=== PATIENT | female | born 1950 | race Caucasian/White ===

== ENCOUNTER 2017-08-30 09:55 | Emergency (ER) | payer BC, MEDICARE ==
[2017-08-30] MEDS ORDERED: methylPREDNISolone Sod Succ/PF 125 MG/2 ML VIAL ONE (10:36)
[2017-08-30] MEDS ORDERED: Water For Inject, Bacteriostat 30 ML ONE (10:36)
[2017-08-30] MEDS ORDERED: Morphine 4 MG/ML VIAL ONE (10:36)
[2017-08-30 11:45] LABS: Bilirubin Negative (Negative); Blood, Urine Small (Negative); Clarity CLEAR (Clear); Glucose, Urine (Dipstick) Negative (Negative); Leukocyte Trace (Negative); Nitrite Negative (Negative); Protein, Urine (Dipstick) 30 mg/dL (Neg-Trace); Specific Gravity, Urine 1.015 (1.002-1.036); Urobilinogen 0.2 mg/dL (0.2-1.0); pH, Urine 5.5 (5.0-9.0)
[2017-08-30 11:46] LABS: Bacteria/HPF None Seen HPF (None Seen); Hyaline Casts/LPF 0-3 HYALINE CAST LPF (0-3 Hyaline); Pathc Cast-AUWi Flag 0.43 (0-2.49); RBC/HPF 0-3 HPF (0-3); Squamous Epithelial 0-3 HPF (0-3); WBC/HPF 0-3 HPF (0-3)
== END 2017-08-30 12:29 | disposition home or self-care (01) ==
LOC: ERS 09:55
DX: M54.41 Lumbago with sciatica, right side; Z79.899 Other long term (current) drug therapy; G89.29 Other chronic pain; M54.42 Lumbago with sciatica, left side
CPT/HCPCS: 81003; 81015; 87086; 96372; J2270; J2930

== ENCOUNTER 2017-09-30 16:09 | Outpatient (CLI) | payer BC ==
--- NOTE | 2017-09-30 17:34 | RAD ---
TWO VIEWS OF THE LUMBAR SPINE: 09/30/17 HISTORY: Lumbar disc degeneration. Pain radiating down both legs to feet. Previous back surgery. CORRELATION: Post myelogram CT 07/11/16. FINDINGS: Two views of the lumbar spine demonstrate leftward curvature of the lumbar spine. There are five lumb ar type vertebral bodies. Laminectomy defect at L3 and L4. Left sided transpedicular screw at L2, L3, L4 and L5. Right sided transpedicular screw at L4 and L5. No perihardware lucency. There appears to be anterolisthesis of L3 upon L4. IMPRESSION: Uncomplicated lumbar fusion changes. POS: [facility]
== END 2017-09-30 16:10 | disposition home or self-care (01) ==
LOC: TBSIIMAG 16:09
PROVIDERS: ATTEND Neurological Surgery
DX: M51.36 Other intervertebral disc degeneration, lumbar region (principal); Z98.1 Arthrodesis status
CPT/HCPCS: 72100

== ENCOUNTER 2017-10-28 09:03 | Day surgery (SDC) | payer BC, MEDICARE ==
[2017-10-27 11:00] VITALS: BMI 32.6
[2017-10-28 10:13] VITALS: BP 106/79; TEMP 97.8
--- NOTE | 2017-10-28 12:29 | RAD ---
CERVICAL AND THORACIC AND LUMBAR SPINE MYELOGRAM: INDICATION: Cervical, thoracic, and lumbar radiculopathy. PROCEDURE: After informed consent had been obtained, the patient was escorted to the interventional suite and pl aced on the procedural table. Rehabilitation Liaison imaging was performed. The patient was placed into a prone posi tion. Skin on the low back was then prepped and draped in the standard sterile fashion and topical a nd regional soft tissue anesthesia was achieved with 1% lidocaine and sodium bicarbonate. L3 right in terlaminar approach was selected, and a 22 gauge needle was uneventfully advanced into the thecal sac with clear color CSF. Subsequently, 9 mL Isovue-M300 was instilled into the thecal sac under real t edelmira fluoroscopy. Appropriate opacification of thecal sac demonstrated [facility]. The needle was then removed from the patient. The patient tolerated the procedure well and was then transferred to CT to undergo subsequent myelogram. Reference separate report for full detai ls. RADIATION EXPOSURE DATA: 0.3 minutes intermittent fluoroscopy. 216 mGy*M2. IMPRESSION: Technically successful cervical, thoracic, and lumbar myelogram as detailed above. POS: [facility]
[2017-10-28] MEDS ORDERED: Iopamidol-M 300 61% 15 ML VIAL ONE (13:45)
--- NOTE | 2017-10-28 15:42 | CT ---
CT CERVICAL MYELOGRAM: CT CERVICAL SPINE WITH CONTRAST: INDICATIONS: Back pain. Neck pain. Radiculopathy. COMPARISON: Reference made to prior myelogram from 07/11/2016. FINDINGS: Interval placement of anterior metallic plate and two vertebral body screws at the C5, C6, and C7 lev els. Intervening disk space prostheses are seen at C5-C6 and C6-C7. There is straightening of the n ormal cervical curvature. The anterior metallic plate is located slightly anterior to the anterior m argin of the C5 vertebral body, approximately 2-3 mm. There is no obvious perihardware lucency. No expansile intramedullary process is evident. There is degenerative hypertrophy at the C1-C2 level with mild effacement of the ventral thecal sac. C2-C3: No significant compromise of the central canal or neural foramina. There is a mild broad-bas ed disk osteophyte complex. C3-C4: Mild narrowing of the central canal due to a broad-based disk osteophyte. There is moderate degenerative facet hypertrophy bilaterally, along with uncinate process hypertrophy, producing modera te osseous compromise of the bilateral neural foramina. C4-C5: Asymmetric, prominent right degenerative facet hypertrophy is present with moderate to severe osseous compromise in the right neural foramen. Disk osteophyte results in mild ventral cord efface ment and mild central canal stenosis. Left uncinate process hypertrophy results in mild to moderate osseous compromise of the left neural foramen. C5-C6: There is a broad-based right asymmetric osteophyte with mild right hemicord ventral flattenin g. There is moderate right and mild left neural foraminal narrowing. C6-C7: Right asymmetric osteophyte is present with a focal right paracentral component that does pro duce ventral cord flattening. Prominent uncinate process bilaterally results in moderate to severe o sseous compromise of the neural foramina. C7-T1: Mild ventral CSF effacement due to disk osteophyte. No high grade foraminal compromise. IMPRESSION: Multilevel degenerative and postoperative changes of the cervical spine, as outlined above. There is associated central canal and neural foraminal stenosis, as well as areas of cord deformity. POS: [facility]
--- NOTE | 2017-10-28 16:06 | CT ---
CT LUMBAR SPINE MYELOGRAM: CT LUMBAR SPINE WITH CONTRAST 10/28/17 COMPARISON: 07/11/16 CLINICAL HISTORY: Low back pain, bilateral radiculopathy. FINDINGS: Multilevel posterior metallic fusion is present spanning L2 through L5 segments, with left pedicle sc rew placement at L2 and L3 and bilateral pedicle screws at L4 and L5. No interval, significant periha rdware lucency is identified. There is multilevel bilateral degenerative facet hypertrophy. The conus medullaris terminates at the L1-2 level. There is prominent extrinsic mass effect upon the tip of th e conus medullaris at the L1-2 level due to bilateral facet hypertrophy as well as broad based disc o steophyte. This does result in associated distal cord deformity. Redemonstration of chronic Modic type III end plate degenerative changes of L3 and 4. Mild retrolisth esis of L2 on 3 and mild degree of spondylolisthesis at L3-4, grossly stable. L5-S1: Moderate central canal stenosis is present with broad based disc osteophyte and bilateral face t hypertrophy. Evidence of prior posterior decompression. Added density about the thecal sac likely r elates to epidural fibrosis, limited in visualization on the basis of this exam. L4-5: No significant compromise of central canal and neural foramina. L3-4: Minimal narrowing of the central canal. Prior posterior decompression is again seen. There is m ild to moderate bilateral neural foraminal stenosis. Posterior decompression present. L2-3: Evidence of prior posterior decompression. There is mild narrowing of the central canal due to broad based disc osteophyte. Mild bilateral neural foraminal narrowing. L1-2: Moderate central canal stenosis is again demonstrated. Mild to moderate left and mild right monique ral foraminal narrowing present. IMPRESSION: Redemonstration of multilevel degenerative changes of the postoperative lumbar spine. There is a prom inent degree of compression involving the tip of the conus medullaris due to broad based disc osteoph yte as well as bilateral facet hypertrophy and prominent ligamentum flava. POS: [facility]
--- NOTE | 2017-10-29 08:12 | CT ---
THORACIC SPINE CT MYELOGRAM: THORACIC SPINE CT WITH CONTRAST: CLINICAL HISTORY: Back pain. Radiculopathy. COMPARISON: Thoracic spine myelogram from 07/11/2016. FINDINGS: There is prominent multilevel endplate degenerative change with disk space narrowing and marginal ost eophytosis. Partially imaged hardware at the lower cervical spine is present. There is no significant compromise of the C7-T1 level central canal. T1-T2: There is a disk osteophyte complex notably within the right subarticular zone. Associated ri ght ventral hemicord flattening is present, and there is moderate narrowing of the right subarticular zone. There is mild osseous compromise of the right neural foramen. T2-T3: There is a central disk protrusion approaching but not significantly deforming the ventral as pect of the thoracic spinal cord. No significant foraminal stenosis. T3-T4: Central disk protrusion is superimposed upon disk osteophyte complex. There is mild ventral cord flattening. No high grade foraminal stenosis. T4-T5: Disk osteophyte complex is present. No high grade central canal or foraminal stenosis. T5-T6: Left asymmetric disk osteophyte with a focal left subarticular component results in ventral l eft hemicord flattening and mild narrowing in the left subarticular zone. Mild left foraminal narrow ing. No high grade right foraminal stenosis. T6-T7: Disk osteophyte complex results in mild ventral cord flattening and mild central canal stenos is. No high grade compromise of the neural foramina. T7-T8: Disk osteophyte complex is present with mild ventral cord effacement. No high grade foramina l compromise. T8-T9: There is mild to moderate central canal narrowing due to a broad-based disk osteophyte. Ther e is mild bilateral neural foraminal narrowing. T9-T10: There is moderate central canal stenosis due to disk osteophyte complex. Mild to moderate r ight and mild left neural foraminal narrowing present. T10-T11: Moderate central canal stenosis with associated cord flattening results from broad-based di sk osteophyte. There is moderate right and mild to moderate left neural foraminal narrowing with sev ere bilateral degenerative facet and costovertebral hypertrophy. T11-T12: Moderate central canal stenosis with associated cord flattening due to broad-based disk ost eophyte. There is mild bilateral neural foraminal narrowing. T12-L1: No high grade compromise of the central canal or neural foramina. There is a mild right convexity curvature, centered at the mid lumbar spine. Incidental note of scat tered subpleural interstitial and ground glass opacities. This may be on the basis of a component of pulmonary fibrosis. There is also a round parenchymal nodule at the right perihilar region, approxi mately 7-8 mm in size. In addition, there is a partially imaged subpleural nodular opacity of the po sterior aspect of the right upper lobe. IMPRESSION: 1. Multilevel degenerative change of the thoracic spine with associated cord effacement and central canal and neural foraminal stenosis, as above. 2. Incidental note of nodular opacities of the visualized pulmonary parenchyma. Dedicated CT thorax as followup is warranted. CODE T POS: [facility]
== END 2017-10-28 12:35 | disposition home or self-care (01) ==
LOC: RAD 09:03
PROVIDERS: ATTEND Neurological Surgery
PROC: B02BY0Z Computerized Tomography (CT Scan) of Spinal Cord using Other Contrast, Unenhanced and Enhanced (ICD-10-PCS; principal; 2017-10-28)
DX: M48.062 Spinal stenosis, lumbar region with neurogenic claudication (principal); M48.02 Spinal stenosis, cervical region; M51.14 Intervertebral disc disorders with radiculopathy, thoracic region; M47.26 Other spondylosis with radiculopathy, lumbar region; M47.22 Other spondylosis with radiculopathy, cervical region
CPT/HCPCS: 62305; 72126; 72129; 72132

== ENCOUNTER 2021-11-06 15:36 | Outpatient (CLI) | payer MEDICARE | END 2021-11-06 15:37 | disposition home or self-care (01) | LOC: BICCT 15:36 | PROVIDERS: ATTEND Anesthesiology Pain Medicine | DX: M96.1 Postlaminectomy syndrome, not elsewhere classified (principal); M48.00 Spinal stenosis, site unspecified; T85.111A Breakdown (mechanical) of implanted electronic neurostimulator of peripheral nerve electrode (lead), initial encounter; M47.26 Other spondylosis with radiculopathy, lumbar region; M41.9 Scoliosis, unspecified; Z98.890 Other specified postprocedural states | CPT/HCPCS: 72110; 72131 ==